=== PATIENT | male | born 1935 | race African-American/Black ===

== ENCOUNTER 2016-08-11 06:17 | Day surgery (SDC) | payer OTHER ==
[2016-08-09 13:25] VITALS: BMI 26.6
[2016-08-11] MEDS ORDERED: CIPROFLOXACIN 0.3% EYE DROPS 5 ML BOTTLE ONE (06:26)
[2016-08-11] MEDS ORDERED: FLURBIPROFEN 0.03% OPHTH SOLN 2.5 ML BOTTLE ONE (06:26)
[2016-08-11] MEDS ORDERED: PHENYLEPHRINE 2.5% OPHTH SOLN 15 ML BOTTLE ONE (06:27)
[2016-08-11] MEDS ORDERED: TROPICAMIDE 1% OPHTH SOLN 15 ML BOTTLE ONE (06:27)
[2016-08-11] MEDS ORDERED: CYCLOPENTOLATE HCL 1% OPHTH SOLN 2 ML BOTTLE ONE (06:27)
[2016-08-11 06:54] VITALS: TEMP 98
[2016-08-11] MEDS ORDERED: CYCLOPENTOLATE HCL 1% OPHTH SOLN 2 ML BOTTLE OD ONE ×3 (06:55→07:10)
[2016-08-11] MEDS ORDERED: TROPICAMIDE 0.5% OPHTHALMIC SOLN 15 ML BOTTLE OD ONE (06:55)
[2016-08-11] MEDS ORDERED: CIPROFLOXACIN HCL 0.3% OPHTH 2.5ML BOTTLE OD ONE ×3 (06:55→07:10)
[2016-08-11] MEDS ORDERED: FLURBIPROFEN 0.03% OPHTH SOLN 2.5 ML BOTTLE OD ONE ×3 (06:55→07:10)
[2016-08-11] MEDS ORDERED: PHENYLEPHRINE 2.5% OPHTH SOLN 15 ML BOTTLE OD ONE ×3 (06:55→07:10)
[2016-08-11] MEDS ORDERED: TROPICAMIDE 1% OPHTH SOLN 15 ML BOTTLE OD ONE ×2 (07:05→07:10)
[2016-08-11] MEDS ORDERED: LIDOCAINE HCL/PF 1% SDV 5ML VIAL ONE (07:20)
[2016-08-11] MEDS ORDERED: EPINEPHrine/PF 1 MG/1 ML (1:1,000) AMPULE ONE (07:20)
[2016-08-11] MEDS ORDERED: LIDOCAINE HCL 2% JELLY (5 ML/TUBE) ONE (07:20)
[2016-08-11] MEDS ORDERED: BSS (NA/CA/MG/K) BALANCED SALT SOLUTION OPHTH SOLN 15 ML BOTTLE ONE (07:21)
[2016-08-11] MEDS ORDERED: POVIDONE-IODINE 5% OPHTHALMIC PREP 30 ML SOLUTION ONE (07:21)
[2016-08-11] MEDS ORDERED: TRYPAN BLUE 0.5 ML DISP.SYRIN ONE (07:21)
[2016-08-11] MEDS ORDERED: WATER FOR INJ,STERILE 10 ML ONE (07:21)
[2016-08-11] MEDS ORDERED: VANCOMYCIN 500 MG VIAL (RESTRICTED TO ID ONLY) ONE (07:23)
[2016-08-11] MEDS ORDERED: PHENYLEPHRINE/KETOROLAC 4 ML VIAL IO ONE ×2 (07:45→08:17)
[2016-08-11] MEDS ORDERED: ACETAMINOPHEN 325 MG TABLET (FP) PO PRN (07:50)
[2016-08-11] MEDS ORDERED: LIDOCAINE HCL 2% JELLY (5 ML/TUBE) TP ONE (07:55)
[2016-08-11] MEDS ORDERED: FLURBIPROFEN 0.03% OPHTH SOLN 2.5 ML BOTTLE OP SCH (08:00)
[2016-08-11] MEDS ORDERED: CYCLOPENTOLATE HCL 1% OPHTH SOLN 2 ML BOTTLE OP SCH (08:00)
[2016-08-11] MEDS ORDERED: TROPICAMIDE 1% OPHTH SOLN 15 ML BOTTLE OP SCH (08:00)
[2016-08-11] MEDS ORDERED: CIPROFLOXACIN HCL 0.3% OPHTH 2.5ML BOTTLE OP SCH (08:00)
[2016-08-11] MEDS ORDERED: PHENYLEPHRINE 2.5% OPHTH SOLN 15 ML BOTTLE OP SCH (08:00)
[2016-08-11] MEDS ORDERED: MIDAZOLAM HCL 2 MG/2 ML SINGLE DOSE VIAL ONE (08:07)
[2016-08-11] MEDS ORDERED: LIDOCAINE HCL 1% PRESERVATIVE FREE - 30ML VIAL IO ONE ×2 (08:17)
[2016-08-11] MEDS ORDERED: CHONDROITIN SU A/HYALUR SOD 1 KIT IO ONE (08:18)
--- NOTE | 2016-08-11 08:53 | SPEC ---
DATE OF OPERATION: 08/11/2016 OPERATION: Phacoemulsification with posterior chamber intraocular lens implantation, right eye. Lens used [id number], 19.0 Diopter power, Serial No. [id number]. PREOPERATIVE DIAGNOSIS: Cataract, right eye. POSTOPERATIVE DIAGNOSIS: Cataract, right eye. SURGEON: Michelle Everett M.D. ANESTHESIA: Topical MAC. COMPLICATIONS: None. PROCEDURE: The patient was brought to the operating room and correctly identified along with the operative site and the correct intraocular lens ibrahim. The patient was then prepped and draped in the usual sterile fashion including 5% Betadine solution in the conjunctival sac and an eyelid drape. An eyelid speculum was then placed in the eye. A paracentesis port was created and approximately 0.5 mL of preservative free Lidocaine was then injected into the eye. Viscoelastic was then injected to inflate the anterior chamber. A temporal clear corneal wound was created. A continuous circular capsulorrhexis was performed. The nucleus was then hydro-dissected with BSS and removed with phacoemulsification. The remaining cortical material was irrigated and aspirated. Viscoelastic was injected to inflate the capsular bag and the intraocular lens was then implanted into the capsular bag. The remaining Viscoelastic was irrigated and aspirated from the eye. The IOL was noted to be well centered and completely covered by the anterior capsulorrhexis. Topical Vancomycin was placed and the eye patched and shielded. The patient was then discharged from the operating room in stable condition. All wounds were tested and found to be watertight. No suture was placed. The eye was then shielded. The patient was then discharged from the operating room in stable condition. MICHELLE EVERETT M.D. /[id number]
[2016-08-11] MEDS ORDERED: ACETAMINOPHEN 325 MG TABLET (FP) ONE (10:04)
[2016-08-11] MEDS ORDERED: ACETAMINOPHEN 325 MG TABLET (FP) PO ONE (10:05)
[2016-08-11 11:20] VITALS: BP 130/79; PULSE 70
== END 2016-08-11 11:00 | disposition home or self-care (01) ==
LOC: JASU-SURG 06:17
PROVIDERS: ATTEND Ophthalmology
PROC: 08RJ3JZ Replacement of Right Lens with Synthetic Substitute, Percutaneous Approach (ICD-10-PCS; principal; 2016-08-11 08:00)
DX: H26.9 Unspecified cataract (principal)
CPT/HCPCS: C9447

== ENCOUNTER 2017-08-12 11:31 | Day surgery (SDC) | payer OTHER ==
[2017-08-11 10:51] VITALS: BMI 27.3
--- NOTE | 2017-08-12 10:55 | HP ---
History & Physical Update - History History: No Change - Physical Physical: No Change - Assessment Assessment: No Change - Plan Plan: No Change
--- NOTE | 2017-08-12 10:57 | OP ---
Operative Note - Note: Operative Date: 08/12/17 Pre-Operative Diagnosis: prostate cancer Operation: cystoscopy and prostate cryoablation Post-Operative Diagnosis: Same as Pre-op Surgeon: Juan Manuel Nava Anesthesiologist/TIER LIFT OPERATOR: Jay Tabares Anesthesia: General Estimated Blood Loss (mls): 0 Drains & Tubes with Location: 18 fr muir Operative Report Dictated: Yes
[~2017-08-12 11:31] MED LIST: ceFAZolin SODIUM 1 GM VIAL IVPB ONE
[2017-08-12] MEDS ORDERED: MIDAZOLAM HCL 2 MG/2 ML SINGLE DOSE VIAL ONE (12:50)
[2017-08-12] MEDS ORDERED: ceFAZolin SODIUM 1 GM VIAL IVPB ONE (13:30)
[2017-08-12] MEDS ORDERED: ONDANSETRON 4 MG/2 ML VIAL IVPUSH PRN (14:34)
[2017-08-12] MEDS ORDERED: oxyCODONE HCL 5 MG TABLET PO PRN (14:34)
[2017-08-12] MEDS ORDERED: ACETAMINOPHEN 325 MG TABLET (FP) PO ONE (14:34)
[2017-08-12] MEDS ORDERED: LACTATED RINGERS SOLUTION 1,000 ML IV SCH (14:45)
[2017-08-12] MEDS ORDERED: ePHEDrine SULFATE 50 MG/1 ML AMPULE ONE (15:04)
[2017-08-12] MEDS ORDERED: IBUPROFEN 800 MG/8 ML IJ IVPB ONE ×3 (16:13→16:34)
[2017-08-12] MEDS ORDERED: ACETAMINOPHEN INJECTION 100 ML IVPB ONE (16:14)
[2017-08-12] MEDS ORDERED: ACETAMINOPHEN 1000 MG/100 ML VIAL (NON FORMULARY) IVPB ONE ×2 (16:15→16:22)
[2017-08-12 17:12] VITALS: TEMP 98.2
[2017-08-12] MEDS ORDERED: oxyCODONE HCL 5 MG TABLET ONE (17:18)
[2017-08-12 18:13] VITALS: BP 147/79; PULSE 92
--- NOTE | 2017-08-13 08:36 | OP ---
DATE OF OPERATION: 08/12/2017 PREOPERATIVE DIAGNOSIS: Prostate cancer. POSTOPERATIVE DIAGNOSIS: Prostate cancer. PROCEDURE: Cystoscopy, prostate cryoablation. SURGEON: Juan Manuel Bradley MD BIOMEDICAL PHOTOGRAPHER: None. ANESTHESIA: General via laryngeal mask. ANESTHESIOLOGIST: Jay Tabares CRNA SPECIMENS: None. CULTURES: None. DRAINS: An 18-Persian Cisneros catheter. ESTIMATED BLOOD LOSS: Negligible. COMPLICATIONS: None. DESCRIPTION OF PROCEDURE: Patient was brought into the operating room, placed on the operating table in supine position. After the administration of general anesthesia, intravenous antibiotics were administered. Sequential compression devices were placed. Patient was placed in dorsal lithotomy position. The perineum was then shaved, and the perineum and genitals, lower abdomen, and thighs were prepped and draped in usual sterile manner. A number 18-Persian Cisneros catheter was placed per urethra into the bladder. Then, the bladder was filled with 300 mL of sterile normal saline and the Cisneros was clamped. Now, the transrectal ultrasound probe was inserted, and measurements were taken, volume obtained. Plan was formulated for the cryoablation. Now, using 6 probes, they were placed through the grid in the appropriate location. Now, 2 temperature sensors were placed, one in the external sphincter, one in Denonvilliers fascia. Now, the Cisneros catheter was removed. Flexible cystoscopy was performed. This demonstrated a normal anterior urethra, normal prostatic urethra. No probes were entering into the prostatic urethra. The bladder was entered, thoroughly inspected. There were no foreign bodies, tumors, stones, inflammation. Both ureteral orifices were in their usual location with clear efflux bilaterally. No probes were seen entering the bladder as well. Now, a Super Stiff guidewire was passed through the cystoscope and into the bladder. Then, the flexible cystoscope was removed, and urethral warmer was inserted over the guidewire. Then, the guidewire was removed. Urethral warming was started, and now, prostate cryoablation was done with 2 freeze-thaw cycles with excellent coverage. At the end of the procedure, probes were removed. Direct pressure on the perineum achieved hemostasis. The urethral warmer was left in place for an additional 5 minutes. Sterile compressive dressing of 4 x 4 and Tegaderm was placed. Cisneros catheter drainage was clear at the end of the procedure. He tolerated the procedure well, transferred to Recovery in stable condition. JUAN MANUEL BRADLEY M.D. [id number]
== END 2017-08-12 18:19 | disposition home or self-care (01) ==
LOC: JASU-SURG 11:31
PROVIDERS: ATTEND Urology
PROC: 0V507ZZ Destruction of Prostate, Via Natural or Artificial Opening (ICD-10-PCS; principal; 2017-08-12 13:30)
DX: C61 Malignant neoplasm of prostate (principal)
CPT/HCPCS: 55873; C2618; 82962; 94760

== ENCOUNTER 2017-08-19 00:06 | Emergency (ER) | payer OTHER ==
[2017-08-19 00:41] VITALS: BP 137/85; PULSE 96; TEMP 97.3; BMI 27.3
--- NOTE | 2017-08-19 01:13 | PDOC ---
History of Present Illness - General Chief Complaint: Urinary Problem Stated Complaint: URINARY PROBLEM,PAIN,S/P SURGERY Time Seen by Provider: 08/19/17 01:13 History Source: Patient - History of Present Illness Initial Comments: 08/19/17 02:22 82 year old male with history of prostate cancer and surgery s/p removal of lofey catheter yesterday. patient unable to urinate since catheter is removed. patient is currently on bactrim po. reports chills denies fever, NVD, abdominal pain, flank pain. Past History - Past Medical History Allergies/Adverse Reactions: Allergies Allergy/AdvReac Type Severity Reaction Status Date / Time No Known Allergies Allergy Unverified 08/11/16 06:50 Home Medications: Ambulatory Orders Amlodipine Besylate [Norvasc -] 5 mg PO DAILY 10/30/14 Lisinopril [Prinivil -] 20 mg PO DAILY 10/30/14 Metformin HCl [Glucophage] 500 mg PO DAILY 10/30/14 Omeprazole [Prilosec (RX)] 20 mg PO DAILY 10/30/14 Polyethylene Glycol 300 500 ml MC PRN PRN 10/30/14 Simvastatin [Zocor -] 40 mg PO HS 10/30/14 Tenofovir Disoproxil Fumarate [Viread] 300 mg PO DAILY 10/30/14 Unobtainable 08/11/17 Oxycodone HCl/Acetaminophen [Percocet 5-325 mg Tablet] 1 - 2 tab PO Q4H PRN #40 tablet MDD 6 08/12/17 Sulfamethoxazole/Trimethoprim [Bactrim Ds -] 1 tab PO BID #14 tablet 08/12/17 Anemia: No Asthma: No Cancer: No Cardiac Disorders: No CVA: No COPD: No CHF: No Dementia: No Diabetes: Yes GI Disorders: No Disorders: No HTN: Yes Hypercholesterolemia: No Liver Disease: No Seizures: No Thyroid Disease: No - Surgical History Abdominal Surgery: Yes ("STOMACH SURGERY") Appendectomy: Yes Cardiac Surgery: No Cholecystectomy: No Lung Surgery: No Neurologic Surgery: No Orthopedic Surgery: No - Suicide/Smoking/Psychosocial Hx Smoking History: Never smoked Have you smoked in the past 12 months: No Information on smoking cessation initiated: No Hx Alcohol Use: No Drug/Substance Use Hx: No Substance Use Type: None Hx Substance Use Treatment: No Review of Systems - Review of Systems Able to Perform ROS?: Yes Is the patient limited Thai proficient: No Constitutional: No: Symptoms Reported, See HPI, Chills, Diaphoresis, Fever, Loss of Appetite, Malaise, Night Sweats, Weakness, Weight Stable, Unintentional Wgt. Loss, Unexplained wgt Loss, Other : Yes: Other (urinary retention) *Physical Exam - Vital Signs Last Vital Signs Temp Pulse Resp BP Pulse Ox 97.3 F L 96 H 20 137/85 100 08/19/17 00:10 08/19/17 00:10 08/19/17 00:10 08/19/17 00:10 08/19/17 00:10 - Physical Exam General Appearance: Yes: Appropriately Dressed Respiratory/Chest: positive: Lungs Clear, Normal Breath Sounds Gastrointestinal/Abdominal: positive: Normal Bowel Sounds, Soft. negative: Tender Extremity: positive: Normal Capillary Refill, Normal Inspection, Normal Range of Motion Integumentary: positive: Normal Color, Dry, Warm Neurologic: positive: Fully Oriented, Alert, Normal Mood/Affect *DC/Admit/Observation/Transfer Diagnosis at time of Disposition: Urinary retention, Encounter for Cisneros catheter replacement - Discharge Dispostion Disposition: HOME - Referrals Referrals: Ashley Archuleta [Primary Care Provider] - Juan Manuel Nava MD [Staff Physician] - 24 hours - Patient Instructions Printed Discharge Instructions: DI for Urinary Retention in Men Additional Instructions: drink plenty of fluids. follow up with your urologist as soon as possible. - Post Discharge Activity
--- NOTE | 2017-08-19 01:51 | PDOC ---
*Physical Exam - Vital Signs Last Vital Signs Temp Pulse Resp BP Pulse Ox 97.3 F L 96 H 20 137/85 100 08/19/17 00:10 08/19/17 00:10 08/19/17 00:10 08/19/17 00:10 08/19/17 00:10 Medical Decision Making - Medical Decision Making 08/19/17 01:51 agree with care from YANNI Salomon *DC/Admit/Observation/Transfer - Referrals Referrals: Ashley Archuleta [Primary Care Provider] - - Patient Instructions - Post Discharge Activity
[2017-08-19 02:23] LABS: URINE APPEARANCE CLOUDY; URINE BILIRUBIN NEGATIVE (NEGATIVE); URINE BLOOD 3+ (NEGATIVE); URINE COLOR AMBER; URINE GLUCOSE (UA) NEGATIVE (NEGATIVE); URINE KETONE NEGATIVE (NEGATIVE); URINE LEUK ESTERASE NEGATIVE (NEGATIVE); URINE NITRITE NEGATIVE (NEGATIVE); URINE UROBILINOGEN 4.0 E.U/dl mg/dL (0.2-1.0)
[2017-08-19 02:29] LABS: URINE PROTEIN 2+ (NEGATIVE)
[2017-08-19 02:32] LABS: URINE HYALINE CAST 7 /lpf; URINE MUCUS FEW
== END 2017-08-19 02:48 | disposition home or self-care (01) ==
LOC: JER 00:06
PROC: 0T9B80Z Drainage of Bladder with Drainage Device, Via Natural or Artificial Opening Endoscopic (ICD-10-PCS; principal; 2017-08-19)
DX: R33.9 Retention of urine, unspecified (principal); Z85.46 Personal history of malignant neoplasm of prostate; Z79.84 Long term (current) use of oral hypoglycemic drugs; I10 Essential (primary) hypertension; E11.9 Type 2 diabetes mellitus without complications
CPT/HCPCS: 51702; 81003; 81015; 87086; 99283-25